=== PATIENT | female | born 1955 | race American Indian/Alaskan Native ===

== ENCOUNTER 2018-09-20 14:10 | Emergency (ER) | payer SELFPAY ==
[2018-09-20 15:01] VITALS: BP 147/73
--- NOTE | 2018-09-20 15:01 | Emergency Department Report ---
Chief Complaint: Pain General Stated Complaint: LEG PAIN/HARD TO WALK Time Seen by Provider: 09/20/18 15:00 - HPI History of Present Illness: This is a 63 y.o. female that presents with right hip pain radiating down lower extremities. - ROS Review of Systems: lower extremities: right hip pain radiating down leg - Exam Vital Signs: Vital Signs 09/20/18 14:59 Temperature 97.9 F Pulse Rate 79 Respiratory 18 Rate Blood Pressure 147/73 O2 Sat by Pulse 97 Oximetry MSE screening note: Focused history and physical exam performed. Due to findings the following was ordered: XR of right hip. Fast track for further evaluation. ED Disposition for MSE Condition: Stable
--- NOTE | 2018-09-20 15:45 | XRay Report ---
RIGHT HIP: Pain. The bony architecture is intact without evidence of fracture or dislocation. No significant soft tissue abnormality is seen. Of note is a small spur at the superior lateral acetabulum margin of the left hip. Normal acetabular joints with sub-chondral cysts involving the iliac bones adjacent to the inferior SI joints bilaterally. IMPRESSION: Normal right hip. Other findings as described.
[2018-09-20] MEDS ORDERED: TORADOL IM ONE (16:13)
--- NOTE | 2018-09-20 16:17 | Emergency Department Report ---
ED Back Pain/Injury HPI - General Chief Complaint: Pain General Stated Complaint: LEG PAIN/HARD TO WALK Time Seen by Provider: 09/20/18 15:00 Source: patient Limitations: No Limitations - History of Present Illness Initial Comments: This is a 63-year-old female nontoxic, well nourished in appearance, no acute signs of distress presents to the ED with c/o of acute on chronic lower back pain. Patient stated that the past 2 days he was moving and developed this pain. Patient states has history of sciatica nerve pain which is similar symptoms as today. Patient states that pain radiates through to his right lower extremity. Patient denies any trauma. Denies any bladder or bowel instability. Patient denies any urinary symptoms. Denies any fever, chills, nausea, vomitin g, headache, stiff neck, chest pain or shortness of breath. Patient denies any numbness or tingling. Denies any allergies. MD Complaint: back pain Similar Symptoms Previously: Yes Radiation: right leg Severity: mild Severity scale (0 -10): 8 Quality: aching Consistency: intermittent Improves With: immobilization Worsens With: movement, walking Context: while lifting, turning/twisting Associated Symptoms: denies other symptoms. denies: confusion, weakness, chest pain, numbness, difficulty walking, cough, difficulty urinating, diaphoresis, incontinence, fever/chills, constipation, headaches, abdominal pain, loss of appetite, malaise, nausea/vomiting, rash, seizure, shortness of breath, syncope - Related Data Previous Rx's Medication Instructions Recorded Last Taken Type Ibuprofen [Motrin] 600 mg PO Q8H PRN #50 tablet 03/05/14 Unknown Rx Metoprolol [Lopressor TAB] 50 mg PO BID #60 tablet 05/08/14 10/21/14 Rx glyBURIDE [Diabeta] 2.5 mg PO BID #60 tablet 05/08/14 10/21/14 Rx metFORMIN [Glucophage] 850 mg PO BID #60 tablet 05/08/14 10/21/14 Rx Pantoprazole Sodium [Protonix] 20 mg PO BID #60 tablet. 10/22/14 Unknown Rx Simvastatin 20 mg PO QHS #30 tablet 10/22/14 Unknown Rx Fluticasone [Flonase] 1 spray NS QDAY #1 bottle 06/10/15 Unknown Rx predniSONE [Deltasone] 20 mg PO QDAY #5 tab 06/10/15 Unknown Rx Cyclobenzaprine HCl [Flexeril 5 MG 5 mg PO TID #20 tab 06/29/15 Unknown Rx TAB] Docusate Sodium [Colace] 100 mg PO BID #14 capsule 06/29/15 Unknown Rx HYDROcodone/APAP 7.5-325 [[place] 1 each PO Q6HR PRN #20 tablet 06/29/15 Unknown Rx 7.5/325] Amoxicillin [Amoxicillin TAB] 875 mg PO BID #20 tablet 03/05/16 Unknown Rx Benzonatate [Tessalon Perles] 100 mg PO Q8HR #20 capsule 03/05/16 Unknown Rx Levothyroxine (Nf) [Synthroid (Nf)] 200 mcg PO QAM #30 tablet 03/05/16 Unknown Rx Omeprazole 40 mg PO DAILY #30 capsule. 07/07/18 Unknown Rx traMADol [Ultram 50 MG tab] 50 mg PO Q6HR PRN #12 tablet 07/07/18 Unknown Rx Cyclobenzaprine HCl [Flexeril 5 MG 5 mg PO QHS PRN #10 tab 09/20/18 Unknown Rx TAB] Ibuprofen [Motrin] 600 mg PO Q8H PRN #10 tablet 09/20/18 Unknown Rx Allergies Allergy/AdvReac Type Severity Reaction Status Date / Time No Known Allergies Allergy Verified 06/29/15 04:24 ED Review of Systems ROS: Stated complaint: LEG PAIN/HARD TO WALK Other details as noted in HPI Constitutional: denies: chills, fever Eyes: denies: eye pain, eye discharge, vision change ENT: denies: ear pain, throat pain Respiratory: denies: cough, shortness of breath, wheezing Cardiovascular: denies: chest pain, palpitations Endocrine: no symptoms reported Gastrointestinal: denies: abdominal pain, nausea, diarrhea Genitourinary: denies: urgency, dysuria, discharge Musculoskeletal: back pain. denies: joint swelling, arthralgia Skin: denies: rash, lesions Neurological: denies: headache, weakness, paresthesias Psychiatric: denies: anxiety, depression Hematological/Lymphatic: denies: easy bleeding, easy bruising ED Past Medical Hx - Past Medical History Previous Medical History?: Yes Hx Hypertension: Yes Hx Heart Attack/AMI: Yes Hx Diabetes: Yes Additional medical history: Chronic back pain - Surgical History Past Surgical History?: Yes Hx Coronary Stent: Yes - Social History Smoking Status: Never Smoker Substance Use Type: None - Medications Home Medications: Home Medications Medication Instructions Recorded Confirmed Last Taken Type Ibuprofen [Motrin] 600 mg PO Q8H PRN #50 tablet 03/05/14 10/22/14 Unknown Rx Metoprolol [Lopressor TAB] 50 mg PO BID #60 tablet 05/08/14 10/22/14 10/21/14 Rx glyBURIDE [Diabeta] 2.5 mg PO BID #60 tablet 05/08/14 10/22/14 10/21/14 Rx metFORMIN [Glucophage] 850 mg PO BID #60 tablet 05/08/14 10/22/14 10/21/14 Rx Pantoprazole Sodium [Protonix] 20 mg PO BID #60 tablet. 10/22/14 Unknown Rx Simvastatin 20 mg PO QHS #30 tablet 10/22/14 Unknown Rx Fluticasone [Flonase] 1 spray NS QDAY #1 bottle 06/10/15 Unknown Rx predniSONE [Deltasone] 20 mg PO QDAY #5 tab 06/10/15 Unknown Rx Cyclobenzaprine HCl [Flexeril 5 MG 5 mg PO TID #20 tab 06/29/15 Unknown Rx TAB] Docusate Sodium [Colace] 100 mg PO BID #14 capsule 06/29/15 Unknown Rx HYDROcodone/APAP 7.5-325 [[place] 1 each PO Q6HR PRN #20 tablet 06/29/15 Unknown Rx 7.5/325] Amoxicillin [Amoxicillin TAB] 875 mg PO BID #20 tablet 03/05/16 Unknown Rx Benzonatate [Tessalon Perles] 100 mg PO Q8HR #20 capsule 03/05/16 Unknown Rx Levothyroxine (Nf) [Synthroid (Nf)] 200 mcg PO QAM #30 tablet 03/05/16 Unknown Rx Omeprazole 40 mg PO DAILY #30 capsule. 07/07/18 Unknown Rx traMADol [Ultram 50 MG tab] 50 mg PO Q6HR PRN #12 tablet 07/07/18 Unknown Rx Cyclobenzaprine HCl [Flexeril 5 MG 5 mg PO QHS PRN #10 tab 09/20/18 Unknown Rx TAB] Ibuprofen [Motrin] 600 mg PO Q8H PRN #10 tablet 09/20/18 Unknown Rx ED Physical Exam - General Limitations: No Limitations General appearance: alert, in no apparent distress - Head Head exam: Present: atraumatic, normocephalic - Extremities Exam Extremities exam: Present: normal inspection, full ROM, normal capillary refill. Absent: tenderness, calf tenderness - Back Exam Back exam: Present: normal inspection, full ROM, paraspinal tenderness (right sided paraspinal lumbar). Absent: tenderness, CVA tenderness (R), CVA tenderness (L), muscle spasm, vertebral tenderness, rash noted - Expanded Back Exam Expanded Back exam: Absent: saddle anesthesia Back exam: Negative Straight Leg Raising: Right, Left - Neurological Exam Neurological exam: Present: alert, oriented X3 - Psychiatric Psychiatric exam: Present: normal affect, normal mood - Skin Skin exam: Present: warm, dry, intact, normal color. Absent: rash ED Course Vital Signs 09/20/18 14:59 Temperature 97.9 F Pulse Rate 79 Respiratory 18 Rate Blood Pressure 147/73 O2 Sat by Pulse 97 Oximetry - Reevaluation(s) Reevaluation #1: 09/20/18 16:17 Patient is speaking in full sentences with no signs of distress noted. ED Medical Decision Making - Medical Decision Making This is a 63-year-old female that presents with sciatica. Patient is stable was examined by me. There is no spinal tenderness. There is no cauda equina synd zuleyka during examination. No bladder or bowel instability. Patient received Toradol 30 mg IM in the ED which preceded his symptoms has resolved and subsided. Patient is discharged with muscle relaxant and Motrin. Patient was instructed not to operate any machinery while taking muscle relaxant as they cause her drowsiness. Patient was referred to Follow-up with a primary care doctor in 3-5 days or if symptoms worsen and continue return to emergency room as soon as possible. At time of discharge, the patient does not seem toxic or ill in appearance. No acute signs of distress noted. Patient agrees to discharge treatment plan of care. No further questions noted by the patient. This chart is dictated with using [employer] Critical care attestation.: If time is entered above; I have spent that time in minutes in the direct care of this critically ill patient, excluding procedure time. ED Disposition Clinical Impression: Low back strain Qualifiers: Encounter type: initial encounter Qualified Code(s): S39.012A - Strain of muscle, fascia and tendon of lower back, initial encounter Sciatica Qualifiers: Laterality: right Qualified Code(s): M54.31 - Sciatica, right side Disposition: TO HOME OR SELFCARE Is pt being admited?: No Does the pt Need Aspirin: No Condition: Stable Instructions: Sciatica (ED), Cyclobenzaprine (By mouth) Additional Instructions: Follow-up with your primary care doctor in 3-5 days or if symptoms worsen such as bladder or bowel stability, chest pain, short of breath, numbness or tingling sensation in extremities, headache, dizziness, visual changes, nausea vomiting, or abdominal pain, return back to emergency room as was possible. Take ibuprofen and Flexeril as prescribed. Do not operate heavy machinery while taking Flexeril due to sedation Prescriptions: Cyclobenzaprine HCl [Flexeril 5 MG TAB] 5 mg PO QHS PRN #10 tab PRN Reason: Muscle Spasm Ibuprofen [Motrin] 600 mg PO Q8H PRN #10 tablet PRN Reason: Pain Referrals: GIPSY JENNIVERONA MD RANGEL [Primary Care Provider] - 3-5 Days PRIMARY MD GINI [Referring] - 3-5 Days MARY BRIONES MD [Staff Physician] - 3-5 Days [facility] [Outside] - 3-5 Days
== END 2018-09-20 17:01 | disposition home or self-care (01) ==
LOC: ED 14:10
DX: S39.012A Strain of muscle, fascia and tendon of lower back, initial encounter (principal); M54.31 Sciatica, right side; I10 Essential (primary) hypertension; I25.2 Old myocardial infarction; E11.9 Type 2 diabetes mellitus without complications; Z95.5 Presence of coronary angioplasty implant and graft; Z79.899 Other long term (current) drug therapy; X50.1XXA Overexertion from prolonged static or awkward postures, initial encounter; Y93.89 Activity, other specified; Y92.89 Other specified places as the place of occurrence of the external cause; Y99.8 Other external cause status
CPT/HCPCS: 73502; 96372; 99283; J1885

== ENCOUNTER 2019-05-29 20:49 | Emergency (ER) | payer OTHER ==
--- NOTE | 2019-05-29 22:15 | Event Note ---
ED Screening Note Date of service: 05/29/19 Time: 22:13 ED Screening Note: 64 y/o female come for right hip pain and lower back pain. This initial assessment/diagnostic orders/clinical plan/treatment(s) is/are subject to change based on patients health status, clinical progression and re-assessment by fellow clinical providers in the ED. Further treatment and workup at subsequent clinical providers discretion. Patient/guardian urged not to elope from the ED as their condition may be serious if not clinically assessed and managed. Initial orders include:
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
[2019-05-30] MEDS ORDERED: traMADol 50 MG TAB PO ONE (01:19)
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
[2019-05-30 02:09] VITALS: BP 136/72
== END 2019-05-30 02:09 | disposition home or self-care (01) ==
LOC: ED 20:49
DX: S76.011A Strain of muscle, fascia and tendon of right hip, initial encounter (principal); M54.5 Low back pain; G89.29 Other chronic pain; I10 Essential (primary) hypertension; I25.2 Old myocardial infarction; E11.9 Type 2 diabetes mellitus without complications; Z79.84 Long term (current) use of oral hypoglycemic drugs; Z79.899 Other long term (current) drug therapy; Z95.5 Presence of coronary angioplasty implant and graft; V49.49XA Driver injured in collision with other motor vehicles in traffic accident, initial encounter; Y93.89 Activity, other specified; Y92.410 Unspecified street and highway as the place of occurrence of the external cause; Y99.8 Other external cause status
CPT/HCPCS: 72100